=== PATIENT | male | born 1960 | race Two or more races ===

== ENCOUNTER 2018-12-26 07:13 | Inpatient (IN) | payer OTHER ==
[2018-12-26] VITALS (11 sets, daily range): BP systolic 105–138; BP diastolic 21–94
[~2018-12-26] VITALS: Ht 175.3 cm; Wt 95.3 kg
[~2018-12-26 07:13] MED LIST: NKM; ceFAZolin sod 2 GM in D5W 110 ML IVPB ONE
--- NOTE | 2018-12-26 07:25 | Pre-Procedure Note/Attestation ---
Pre-Procedure Note/Attestation Complete Prior to Procedure Planned Procedure: not applicable Procedure Narrative: Cervical 67 artificial disc replacement, Cervical 45,56 anterior cervical discectomy and fusion Indications for Procedure Pre-Operative Diagnosis: Herniation C45,56,67 Attestation I attest that I discussed the nature of the procedure; its benefits; risks and complications; and alternatives (and the risks and benefits of such alternatives ), prior to the procedure, with the patient (or the patient's legal sales representative printing paper). I attest that, if there was a reasonable possibility of needing a blood transfusion, the patient (or the patient's legal sales representative printing paper) was given the [facility] standardized written summary, pursuant to the Ambrocio Maurilio Blood Safety Act ([place] Health and Safety Code # 1645, as amended). I attest that I re-evaluated the patient just prior to the surgery and that there has been no change in the patient's H&P, except as documented below: Behzad Echeverria MD Dec 26, 2018 07:25
--- NOTE | 2018-12-26 07:26 | Brief Operative Note ---
Immediate Post Operative Note Operative Note Chief Complaint: neck pain and radculopathy Pre-op Diagnosis: Herniation C45,56,67 Procedure: Cervical 67 artificial disc replacement, Cervical 45,56 anterior cervical discectomy and fusion Post-op Diagnosis: same as pre-op Findings: consistent w/pre-op dx studies Surgeon: Jacki Charge Master Analyst: Carmen Anesthesiologist: Li Anesthesia: general Specimen: none Complications: none Condition: stable Fluids: IVF Estimated Blood Loss: minimal Drains: none Implant(s) used?: Yes - Prodisc c sz 5,( nuvasive interlock c sz 6, screws 13x3 )x2 Behzad Echeverria MD Dec 26, 2018 07:26
[2018-12-26] MEDS ORDERED: Chloraseptic Spray 20mL Bottle ORAL PRN (07:30)
[2018-12-26] MEDS ORDERED: HYDROcodone/Acetamin 7.5/325 tab ORAL PRN ×2 (07:30→08:45)
[2018-12-26] MEDS ORDERED: Metoclopramide 10mg/2ml Inj IVP PRN (07:30)
[2018-12-26] MEDS ORDERED: Morphine Sulfate 4mg/ml Inj (IV USE ONLY) IV PRN ×2 (07:30)
[2018-12-26] MEDS ORDERED: HYDROcodone/Acetamin 5/325 tab ORAL PRN ×2 (07:30→08:45)
[2018-12-26] MEDS ORDERED: Naloxone 0.4mg/ml Inj IVP PRN (07:30)
[2018-12-26] MEDS ORDERED: Morphine Sulfate 2mg/ml Inj(IV/IM USE ONLY) IV PRN (07:30)
[2018-12-26] MEDS ORDERED: Milk of Magnesia 30ml Ud ORAL PRN (07:30)
[2018-12-26] MEDS ORDERED: HYDROmorphone 1mg/ml Carpuject IVP PRN (07:30)
[2018-12-26] MEDS ORDERED: LR 1000ml 1,000 ML IVLG SCH (08:37)
--- NOTE | 2018-12-26 08:41 | Anethesia Preoperative Eval ---
Anesthesia Pre-op PMH/ROS General Date of Evaluation: Dec 26, 2018 Time of Evaluation: 09:57 Anesthesiologist: Li ASA Score: ASA 2 Mallampati Score Class I : Soft palate, uvula, fauces, pillars visible Class II: Soft palate, uvula, fauces visible Class III: Soft palate, base of uvula visible Class IV: Only hard plate visible Mallampati Classification: Class II Surgeon: Jacki Diagnosis: Neck Pain Surgical Procedure: ADR C5-6, ACDF C4-5, C6-7 Anesthesia History: none Family History: no anesthesia problems Allergies: Coded Allergies: No Known Allergies (Unverified , 12/24/18) Medications: see eMAR Patient NPO?: Yes NPO Date: Dec 25, 2018 NPO Time: 1999 Anesthesia Pre-op Phys. Exam Physician Exam Last Vital Signs Date Time Temp Pulse Resp B/P (MAP) Pulse Ox O2 Delivery O2 Flow Rate FiO2 12/26/18 08:14 Room Air 12/26/18 07:58 97.5 56 18 105/45 (65) 97 Constitutional: NAD Neurologic: CN 2-12 intact Cardiovascular: RRR Respiratory: CTA Gastrointestinal: S/NT/ND Airway Exam Mallampati Score: Class II MO: full ROM: limited Teeth: missing, intact Anesthesia Pre-op A/P Risk Assessment & Plan Assessment: ASA 2 Plan: GA, SED, GlideScope Go Status Change Before Surgery: No Pre-Antibiotics Dru Grams Ancef IV Given Within 1 Hr of Incision: Yes Time Given: 10:21 Trent Jefferson MD Dec 26, 2018 08:41
--- NOTE | 2018-12-26 08:43 | Immediate Post-Op Evaluation ---
Immediate Post-Op Evalulation Immediate Post-Op Evalulation Procedure: ADR C5-6, ACDF C4-5, C6-7 Date of Evaluation: Dec 26, 2018 Time of Evaluation: 13:15 IV Fluids: 1000 LR Blood Products: 0 Estimated Blood Loss: 400 Urinary Output: 50 Blood Pressure Systolic: 123 Blood Pressure Diastolic: 62 Pulse Rate: 57 Respiratory Rate: 16 O2 Sat by Pulse Oximetry: 100 Temperature (Fahrenheit): 97 Pain Score (1-10): 2 Nausea: No Vomiting: No Complications 0 Patient Status: awake, reacts, patent, extubated, none Hydration Status: adequate Dru Grams Ancef IV Given Within 1 Hr of Incision: Yes Time Given: 10:21 Trent Jefferson MD Dec 26, 2018 08:43
[2018-12-26] MEDS ORDERED: Meperidine 50mg/ml Inj(FOR RIGORS ONLY) IVP PRN (08:45)
[2018-12-26] MEDS ORDERED: Atropine Sulfate 0.4mg/ml inj IVP PRN (08:45)
[2018-12-26] MEDS ORDERED: DiphenhydrAMINE 50mg/ml Inj IVP PRN (08:45)
[2018-12-26] MEDS ORDERED: Acetaminophen (Non formulary) 100 ML IV ONE (08:45)
[2018-12-26] MEDS ORDERED: Midazolam 2mg/2ml Inj IVP PRN (08:45)
[2018-12-26] MEDS ORDERED: LORazepam Inj 2mg/ml 1ml IV PRN (08:45)
[2018-12-26] MEDS ORDERED: Ketorolac 30mg Inj IV PRN ×2 (08:45)
[2018-12-26] MEDS ORDERED: fentaNYL 100 mcg/2 mL IV PRN (08:45)
[2018-12-26] MEDS ORDERED: Hydromorphone 0.5mg/0.5ml inj IVP PRN (08:45)
[2018-12-26] MEDS ORDERED: oxyCODONE HCL/Acetaminophen 5/325mg ORAL PRN (08:45)
[2018-12-26] MEDS ORDERED: Labetalol 5mg/ml 20ml vial IV PRN (08:45)
[2018-12-26] MEDS ORDERED: Lidocaine 1% Plain 30 ml INJ ONE ×2 (09:31→11:26)
[2018-12-26] MEDS ORDERED: Lidocaine 1% MPF 10mg/ml 5ml ONE (09:54)
[2018-12-26] MEDS ORDERED: Sodium Chloride 10ml vial INJ ONE (09:54)
[2018-12-26] MEDS ORDERED: LR 1000ml ONE (09:57)
[2018-12-26] MEDS ORDERED: NS Irrig 1000ml ONE (09:57)
[2018-12-26] MEDS ORDERED: Sterile Water Irrig 1000ml IRRIG ONE (09:57)
[2018-12-26] MEDS ORDERED: Thrombin 5000 units TOPIC ONE (09:58)
[2018-12-26] MEDS ORDERED: Gelfoam Size TOPIC ONE (09:58)
[2018-12-26] MEDS ORDERED: fentaNYL 100 mcg/2 mL IV ONE ×2 (09:58→12:23)
[2018-12-26] MEDS ORDERED: Bacitracin 50000 Units Vial ONE (09:58)
[2018-12-26] MEDS ORDERED: Propofol 200mg/20ml IV ONE (11:26)
[2018-12-26] MEDS ORDERED: NS Irrig 1000ml IRRIG ONE (11:38)
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
--- NOTE | 2018-12-26 14:46 | NUR ---
NURSE NOTES: Arrived on 3e, sleeping, arousable by name. Breathing unlabored on nasal cannula 3L/min. No signs of apparent distress observed. Ice pack around anterior and posterior neck for comfort. No belongings. IV site on left arm patent and intact, running fluids. Bed locked in lowest position, SCD's are on. Call light placed within reach, will continue to monitor.
--- NOTE | 2018-12-26 14:53 | Diagnostic Imaging Report ---
INDICATION: Pain, intraoperative TECHNIQUE: Intraoperative imaging Fluoroscopy time: 30.7 seconds Total dose: 0.9099 mGym2 Total number of images: 9 COMPARISON: None FINDINGS: Intraoperative images demonstrate surgical tools overlying the C5-6 disc and C6 vertebral body. Subsequent images demonstrate surgical tool projected at the anterior aspect of C4-5 and C5-6 discs. Subsequent images document placement of a disc prosthesis at C5-6, as well as anterior fusion hardware at C4-5 and C6-7. IMPRESSION: Intraoperative imaging, as described
[2018-12-26] MEDS: Dexamethasone 4mg/ml vial IVP SCH ×2 (15:00→20:53)
--- NOTE | 2018-12-26 15:31 | NUR ---
CASE MANAGEMENT:REVIEW 58 YR OLD MALE HERE FOR ELECTIVE SURGERY SI: NECK PAIN AND RADICULOPATHY 97.7 57 15 121/60 99% ON RA IS: TO SURGERY FOR CERVICAL 67 ARTIFICIAL DISC REPLACEMENT CERVICAL 45,56 ANTERIOR CERVICAL DISCECTOMY AND FUSION IV ANCEF Q8HRS IVF+KCL @ 100/HR IV DECADRON Q6HRS IV MORPHINE Q4HRS PRN : TO MED/SURG 3 EAST POST OP
[2018-12-26] MEDS: NS w/KCl 20mEq 1000ml 1,000 ML IV SCH (16:44)
[2018-12-26] MEDS: ceFAZolin sod 1 GM in D5W 55 ML IV SCH (18:54)
[2018-12-26] MEDS: Docusate 100mg cap ORAL SCH (18:54)
--- NOTE | 2018-12-26 19:31 | NUR ---
HAND-OFF: Report given to Neena ARMENDARIZ.
[2018-12-26] MEDS: HYDROcodone/Acetamin 7.5/325 tab ORAL PRN (20:55)
--- NOTE | 2018-12-26 23:20 | NUR ---
NURSE NOTE: Pt is A/Ox4 with stable VS. Physical assessment completed and orders reviewed. Call south is within reach, will continue to monitor.
[2018-12-27 00:20] VITALS: BP 128/58
[2018-12-27] MEDS: Dexamethasone 4mg/ml vial IVP SCH ×2 (02:52→08:52)
[2018-12-27] MEDS: NS w/KCl 20mEq 1000ml 1,000 ML IV SCH ×2 (02:52→11:30)
[2018-12-27] MEDS: ceFAZolin sod 1 GM in D5W 55 ML IV SCH ×2 (02:52→11:33)
[2018-12-27 04:30] VITALS: BP 111/41
--- NOTE | 2018-12-27 07:45 | NUR ---
NURSE NOTES: Received report from MARCELLO Chaudhary. Patient A&Ox4. On room air, no signs of distress or labored breathing. IV intact, patent, and infusing IV fluids. Bed in lowest position with call light in reach. Will continue to monitor.
[2018-12-27 08:00] VITALS: BP 125/61
[2018-12-27] MEDS: Docusate 100mg cap ORAL SCH (08:52)
--- NOTE | 2018-12-27 11:56 | NUR ---
NURSE NOTES: Seen and evaluated by and cleared to discharge patient today. Order noted and carried out.
[2018-12-27] MEDS ORDERED: CARISOPRODOL350 MG ORAL (12:28)
[2018-12-27] MEDS ORDERED: NORCO 10-325 T1 EACH ORAL (12:28)
[2018-12-27] MEDS: HYDROcodone/Acetamin 7.5/325 tab ORAL PRN (13:56)
--- NOTE | 2018-12-27 14:05 | NUR ---
PT Note PT vicky completed, tx initiated. Patient is cooperative and motivated; was very receptive to instructions. Addendum: 12/27/18 at 1405 by LILY PEDROZA PT Amended: Links added.
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
--- NOTE | 2018-12-27 14:45 | NUR ---
NURSE NOTES: Patient discharged to home with family member, via private car. ID band removed, IV discounted. Patient has all belongings. Discharge instructions reviewed with patient. Charge nurse aware .
--- NOTE | 2018-12-27 17:00 | Discharge Summary ---
DATE OF ADMISSION: 12/26/2018 DATE OF DISCHARGE: 12/27/2018 PROCEDURE PERFORMED DURING ADMISSION: C4-C5 and C6-C7 anterior cervical discectomy and fusion of the C5-C6 artificial disc replacement. REASON FOR ADMISSION: Herniation C4-C5, C5-C6, C6-C7. HOSPITAL COURSE/TREATMENT RENDERED: DISCHARGE PHYSICAL EXAMINATION: 1. The patient was ambulating with and without the assistance of physical therapy. 2. Prior to discharge home, incision was clean and dry with minimal swelling. 3. Follows commands. 4. Alert and oriented. 5. Gomez discontinued, voiding. 6. Incentive spirometer at bedside. 7. IVF hep locked. MOTOR: Demonstrates expected postoperative bulk and tone. Moves biceps, triceps, and deltoid musculature on command. Moves hip flexors, quadriceps, tibialis anterior, EHL, gastrocsoleus musculature on command as well. TREATMENT RENDERED: 1. Daily nursing care. 2. Physical Therapy. 3. Occupational Therapy. 4. Intravenous medications. 5. Oral medications. 6. Daily postoperative examinations by Spine surgery team. CONDITION OF PATIENT ON DISCHARGE: The condition on discharge is stable for discharge to home. DISCHARGE INSTRUCTIONS: Our specific instructions relating to physical activity, medications, diet, and followup care are detailed in our standard operative folder and were given to this patient prior to surgery. We will however summarize these briefly as stated below. Regarding physical activity, we would like the patient to limit their flexion, extension, and rotation. We also require a limitation on their bending, lifting, and twisting. All medication has been called in prior to surgery to their pharmacy of choice. They can resume their regular diet once tolerated. We would like them to shower and limit soaking the wound in a tub/Jacuzzi/the ocean for a period of one month or until the incision is completely healed. We will have them follow up in our office in three weeks' time for their regularly scheduled appointment. They understand to call our office tomorrow to schedule the time for their three-week followup appointment. The patient will notify us should they experience any increase in the severity of pain, redness/swelling/ or drainage from their incision. Behzad Echeverria M.D. DR: SUSAN JOB#: [id number] CC:
--- NOTE | 2018-12-27 23:00 | Operative Note - Dictated ---
DATE OF OPERATION: 12/26/2018 SURGEON: Behzad Echeverria M.D., Orthopaedic Spine Surgeon. PLANS EXAMINER: LIANE Harris. ANESTHESIOLOGIST: Trent Jefferson M.D. PREOPERATIVE DIAGNOSES: 1. Intractable neck pain. 2. Radiculopathy. 3. Herniation, C4-C5, C5-C6, C6-C7. 4. Neural foraminal stenosis, C4-C5, C5-C6, C6-C7. 5. Stenosis. POSTOPERATIVE DIAGNOSES: 1. Intractable neck pain. 2. Radiculopathy. 3. Herniation, C4-C5, C5-C6, C6-C7. 4. Neural foraminal stenosis, C4-C5, C5-C6, C6-C7. 5. Stenosis. PROCEDURE PERFORMED: 1. Anterior cervical discectomy and artificial disc replacement of C5-C6 using a Synthes ProDisc-C size 5 height. 2. Anterior cervical discectomy and fusion of C4-C5 using NuVasive Interlock-C size 6 PEEK cage and three 13 mm screws with Osteocel allograft bone and local autograft and anterior cervical discectomy and fusion of C6-C7 using NuVasive Interlock-C size 6 PEEK cage and three 13 mm screws with 1 mL Osteocel allograft bone and local autograft. 3. Use of intraoperative microscope. 4. Motor-evoked potential monitoring. 5. Somatosensory-evoked potential monitoring. 6. Supervision and interpretation of fluoroscopy. COMPLICATIONS: None. ANESTHESIA: General. ESTIMATED BLOOD LOSS: Less than 100 mL. INDICATIONS FOR SURGERY: This patient is a 58-year-old male who has a history of diagnoses as listed above. As a result of this, the patient sustained intractable neck pain; radiculopathy; herniation of C4-C5, C5-C6, C6-C7; neural foraminal stenosis of C4-C5, C5-C6, C6-C7; and stenosis. We tried a course of conservative management, but despite this course, there was still a significant component of persistent, recalcitrant neck pain and arm pain. The MRI demonstrated significant neural foraminal compromise secondary to disc herniations at C4-C5, C5-C6, and C6-C7. We had a long discussion with Ashwin regarding the risks and benefits of surgery. Our discussion included but was not limited to nonoperative management, chiropractic management, another epidural steroid injection as well as definitive management in the form of surgery. We recommended an artificial disc replacement of cervical C5-C6 and anterior cervical discectomy and fusion of cervical C4-C5 and C6-C7 as final definitive management. We reviewed the risks and benefits of surgery with the patient. Our discussion included a comprehensive review of the clinical issues and the nature of the clinical decision. We reviewed the alternatives, including doing nothing. The patient elected to proceed accordingly with an artificial disc replacement of cervical C5-C6 and anterior cervical discectomy and fusion of cervical C4-C5 and C6-C7. We had a long discussion regarding the risks, alternatives, and benefits of surgery. Our description of the risks included a discussion in person as well as a signed consent which detailed all pertinent risks from the procedure itself. Briefly, our discussion included but was not limited to infection, bleeding, pseudarthrosis, spinal cord injury, neurovascular injury, dural tear, CSF leak, neuropathy, paralysis, permanent weakness/drop foot/drop arm, paresthesias, blindness, palsy, and weakness. The patient understood there may be a need for a revision surgery or additional procedures. Approach-related complications including dysphonia, dysphagia, blindness, permanent vocal cord and neural injury, hematoma, swallowing and breathing difficulty. Medical complications were reviewed including liver, kidney, shock, cardiopulmonary failure, anesthesia complications including , swelling, damage to the musculature, larynx/voice injury or loss, esophagus/throat, trachea, blood vessels and muscles/muscular sprain and lungs/pneumothorax during this surgical procedure; injury to deeper structures may be temporary or permanent. After this review of risks, the patient understood these and elected to proceed. A written and verbal consent was given. We discussed the pros and cons of all the alternatives. We discussed the uncertainties associated with the decision. Afterwards, I assessed the patient's understanding and explored their preferences. All questions were answered and no guarantees were given. Medical clearance was obtained prior to surgery. INTRAOPERATIVE FINDINGS: C4-C5: There was a very large disc herniation noted. The disc itself was soft and spongy, not calcified; however, there was a large anterior spur noted/osteophyte. The disc was seen to be protruding through a tear in the posterior longitudinal ligament. The tear in the posterior longitudinal ligament was approximately 10 degrees cephalad to caudad and was predominantly on the right side. Once disc was encountered, it was mobilized with a Microsect 1-B curette and afterwards resected with a Kerrison size 1 and size 2 until a thorough and complete decompression of the spinal cord, thecal sac, and neural foramina bilaterally was appropriated. There was a large amount of disc tissue, which was causing pressure on the neural foramina specifically right-sided, but also left-sided to a lesser degree. C5-C6: At C5-C6, there was no anterior bone spur noted. The disc itself was soft and not calcified or degenerated in any way. Upon removal of the disc, I noted a tear in the posterior longitudinal ligament. This tear was on the right side approximately 10 degrees cephalad to caudad. I mobilized the tear with a Microsect 1-B curette and noted a large posterior limb of the disc, which was protruding through the tear. This was resected with Kerrison-1 and Kerrison-2 rongeurs until a thorough and complete decompression of the spinal cord and neural foramina was obtained. The disc itself was soft, not collapsed or calcified. There was neural foraminal stenosis, which was present bilaterally, but worse on the right side. C6-C7: The disc itself was decreased in height. There was a soft quality to the disc. It was not calcified or necessarily desiccated without excessive disc degenerative fragment. I did not appropriate any anterior osteophyte covering the disc. There was upon resection of the disc, a tear noted in the PLL approximately 20 degrees on the right side. This was mobilized and probed with a Microsect 1-B and then a 2-B curette until the posterior limb of the disc herniation was dealinated. This was carefully resected off the spinal cord and thecal sac with a Kerrison-1 and Kerrison-2 rongeur. There was also neural foraminal stenosis, which was right more than left sided. The disc itself had almost a Pacman-shaped curette and based on the vertebral body, if a trial for the ProDisc was placed into the interspace, I thought it would not accommodate the disc replacement well and so I elected to place the disc replacement at the cervical C5-C6 interspace, which had more of a horizontal endplate configuration to accommodate the arthroplasty and this worked well overall. DESCRIPTION OF PROCEDURE: Under the benefit of general endotracheal anesthesia and with the assistance of the entire operative team, the patient was moved from the [facility] onto the operative table in the supine position. The head was secured and carefully positioned appropriately. Bilateral arms were secured with Gel Pads and foam and all bony prominences were padded. For the bilateral lower extremities, SCD and SANIYA hose were placed for DVT prophylaxis. A surgical timeout was called, which corroborated our planned procedure of artificial disc replacement of an artificial disc replacement of cervical C5-C6 and anterior cervical discectomy and fusion of cervical C4-C5 and C6-C7. Preoperative antibiotics were administered within 30 minutes of the incision for antibiotic prophylaxis. Using lateral fluoroscopic radiography, the operative levels were delineated. Next, the wound was prepped and draped with chlorhexidine and sterile drapes. An incision was based on lateral fluoroscopy and we centered our incision at the C4-C5, C5-C6, and C6-C7 interspace and next using a standard Moreno-Garcia anterior-based approach, the incision was taken down through the skin and subcutaneous tissues until the vertebral bodies and their corresponding disc spaces were visualized. A needle was placed into the interspace to confirm placement of the operative interspace and we performed the remainder of procedure under microscopic visualization. Next, using bipolar and Bovie cautery to ensure meticulous hemostasis, the longus colli was mobilized bilaterally and retractors were placed deep to the longus colli bilaterally to address retraction. Next, we turned our attention to the radical anterior discectomy. This was initially performed at C5-C6 first by using a 15 blade scalpel followed by narrow pituitaries and a Microsect 5-B curette was used to denude the endplate of all cartilaginous tissue. Next, using a [employer] AM8 drill bit, the vertebral endplates were denuded of all residual cartilage in a ecdj-cv-fsyg and idtin-bi-clewy fashion, and ultimately the posterior uncinate joints bilaterally and posterior osteophytic lips and margins were carefully denuded until clear visualization of the posterior longitudinal ligament was possible. An endplate preparation was performed in the exact same fashion using an intervertebral zipper ironer, sequential distraction was obtained throughout the disc space. We saw a tear/rent in the PLL and this was carefully mobilized and dissected using a Microsect 1-B curette until we visualized a discrete disc herniation with compression of the spinal cord as well as neural foramina, which was right more than left sided. This neural foraminal compression was carefully resected using a Kerrison-1 and Kerrison-2 rongeurs until complete decompression of the spinal cord was visualized and complete decompression of the neural foramina and nerve root therein as well as the axilla and lateral margin of the nerve root was visualized and subsequently completely decompressed. The family was notified at one-hour intervals throughout the procedure to provide for consistent updates. We next turned our attention towards trialing our implant within the disc space at C5-C6. We initially tried size 5 and this ProDisc Cervical spacer fit well in regard to depth and width. This implant was opened and prepared. Next under direct visualization, I confirmed excellent fit in respect to the anterior and posterior vertebral bodies, the uncinate joints, and in regard to toggle. Once satisfied with this placement on serial AP and lateral fluoroscopy, I turned my attention towards cutting our beckie. These were cut in the bones using a reciprocating drill and afterwards all free fragments of bone were irrigated. Next, FloSeal was placed into the interspace, then removed in its entirety and the implant was inserted using fluoroscopic guidance. Next, the Synthes ProDisc-C size 5 ADR was then carefully advanced and secured into the intervertebral space under direct visualization and with supervision of AP and lateral fluoroscopic views. Next, we turned our attention to the radical anterior discectomy at the C4-C5 level first by using a 15 blade scalpel followed by narrow pituitaries and a Microsect 5-B curette was used to denude the endplate of all cartilaginous tissue. Next using a [employer] AM8 drill bit, the partial vertebrectomy was performed in a wbjm-vf-kcjr and nivda-mx-byawd fashion, and ultimately the posterior uncinate joints bilaterally and posterior osteophytic lips and margins causing central and lateral impingement were carefully denuded until visualization of the posterior longitudinal ligament was possible. An endplate preparation was performed in the exact same fashion using an intervertebral zipper ironer, sequential distraction was obtained throughout the disc space. We saw a tear/rent in the PLL and this was carefully mobilized and dissected using a Microsect 1-B curette until we visualized a broad-based disc herniation with compression of the spinal cord as well as neural foramina, which was right more than left sided. This neural foraminal compression was carefully resected using a Kerrison-1 and Kerrison-2 rongeurs until complete decompression of the spinal cord was visualized and complete decompression of the neural foramina and nerve root therein as well as the axilla and lateral margin of the nerve root was visualized and subsequently completely decompressed. Next, we turned our attention to the radical anterior discectomy at the C6-C7 level first by using a 15 blade scalpel followed by narrow pituitaries and a Microsect 5-B curette was used to denude the endplate of all cartilaginous tissue. Next using a [employer] AM8 drill bit, the partial vertebrectomy was performed in a trnl-qr-rcny and mlawj-uf-ixnkg fashion, and ultimately the posterior uncinate joints bilaterally and posterior osteophytic lips and margins causing central and lateral impingement were carefully denuded until visualization of the posterior longitudinal ligament was possible. An endplate preparation was performed in the exact same fashion using an intervertebral zipper ironer, sequential distraction was obtained throughout the disc space. We saw a tear/rent in the PLL and this was carefully mobilized and dissected using a Microsect 1-B curette until we visualized a broad-based disc herniation with compression of the spinal cord as well as neural foramina, which was right more than left sided. This neural foraminal compression was carefully resected using a Kerrison-1 and Kerrison-2 rongeurs until complete decompression of the spinal cord was visualized and complete decompression of the neural foramina and nerve root therein as well as the axilla and lateral margin of the nerve root was visualized and subsequently completely decompressed. We next turned our attention towards trialing our implant within the disc space at C4-C5. We initially tried size 5 and afterwards size 6 trial from the NuVasive Interlock system at each level, which appeared to be appropriate under AP and lateral fluoroscopy as well as in terms of its height, depth, width, and lack of toggle. The PEEK (polyetheretherketone) interbody cages were then both packed with allograft bone from Osteocel and local autograft bone matrix. Next, these were then carefully advanced and secured into their intervertebral spaces under direct visualization and with supervision of AP and lateral fluoroscopic views. This was then performed at the next level, C6-C7. We initially tried size 5 and afterwards size 6 trial from the NuVasive system, which appeared to be appropriate under AP and lateral fluoroscopy as well as in terms of its height, depth, width, and lack of toggle. The PEEK (polyetheretherketone) interbody cages were then both packed with 1 mL allograft bone from Osteocel and local autograft bone matrix. Next, these were then carefully advanced and secured into their intervertebral spaces under direct visualization and with supervision of AP and lateral fluoroscopic views. We next turned our attention towards plating. Plating was performed at C4-C5 and C6-C7 levels with the NuOoploo Interlock-C plating system. At each level, a total of three screws, size 13 mm in length were inserted and confirmed under AP and lateral fluoroscopy and confirmed to be in excellent position. After a finger sweep, we confirmed removal of all sponges. The retractor was removed and we next turned our attention to meticulous hemostasis with FloSeal and bipolar cautery. After the sponge and needle count was again found to be correct with our second count, we next turned our attention to closure. The wound was again copiously irrigated with antibiotic-impregnated saline. Closure consisted of 4-0 clear nylon for the platysma, and 5-0 clear nylon for the superficial skin. Final skin closure and dressings consisted of Dermabond. Prior to final closure, a final radiograph was obtained which demonstrated the hardware was intact with excellent position throughout. The patient tolerated the procedure well. The patient was carefully extubated after the conclusion of surgery. We discussed the findings of the surgery with the family upon completion of the case. At this point, the patient was transferred to the spine floor for further observation. Behzad Echeverria M.D. DR: SUSAN JOB#: [id number] CC:
[2018-12-28 15:23] VITALS: BP 125/65
--- NOTE | 2018-12-28 15:23 | 48 Hour Post Anesthesia Eval ---
Post Anesthesia Evaluation Procedure: ADR C5-6, ACDF C4-5, C6-7 Date of Evaluation: Dec 28, 2018 Time of Evaluation: 15:23 Blood Pressure Systolic: 125 0: 65 Pulse Rate: 61 Respiratory Rate: 14 O2 Sat by Pulse Oximetry: 98 Airway: patent Nausea: No Vomiting: No Pain Intensity: 3 Hydration Status: adequate Cardiopulmonary Status: stable Mental Status/LOC: patient returned to baseline Post-Anesthesia Complications: none Follow-up care needed: N/A [place] CRNA Dec 28, 2018 15:23
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
== END 2018-12-27 14:50 | disposition home or self-care (01) | DRG 473 ==
LOC: SDSOVERFLO 07:13 → 3E 14:35
PROC: 0RB30ZZ Excision of Cervical Vertebral Disc, Open Approach (ICD-10-PCS; principal; 2018-12-26 09:30)
PROC: 0RG10A0 Fusion of Cervical Vertebral Joint with Interbody Fusion Device, Anterior Approach, Anterior Column, Open Approach (ICD-10-PCS; principal; 2018-12-26 09:30)
PROC: 0RR30JZ Replacement of Cervical Vertebral Disc with Synthetic Substitute, Open Approach (ICD-10-PCS; principal; 2018-12-26 09:30)
DX: M50.121 Cervical disc disorder at C4-C5 level with radiculopathy (principal); V89.2XXS Person injured in unspecified motor-vehicle accident, traffic, sequela; R33.9 Retention of urine, unspecified; G89.18 Other acute postprocedural pain
CPT/HCPCS: 36415; 72040; 76000; 86850; 86900; 86901; 87081; J2405